=== PATIENT | male | born 1960 | race Caucasian/White ===

== ENCOUNTER 2020-12-29 12:44 | Emergency (ER) | payer SELFPAY ==
[~2020-12-29] VITALS: Ht 185.4 cm; Wt 66.1 kg
[~2020-12-29 12:44] MED LIST: AMOX1TAB64 PO; FLUC200T4 PO; IBUP-1902 PO; OMEP40CA42 PO; OXYC1TAB14 PO
[2020-12-29] MEDS ORDERED: KETOROLAC 30 MG/1 ML ONE (14:00)
[2020-12-29] MEDS ORDERED: KETOROLAC 30 MG/1 ML IM ONE (14:00)
[2020-12-29 14:07] VITALS: BP 114/85
== END 2020-12-29 15:12 | disposition home or self-care (01) ==
LOC: ED 13:19
DX: S39.012A Strain of muscle, fascia and tendon of lower back, initial encounter (principal); G89.11 Acute pain due to trauma; M25.512 Pain in left shoulder; M25.552 Pain in left hip; F17.200 Nicotine dependence, unspecified, uncomplicated; W01.0XXA Fall on same level from slipping, tripping and stumbling without subsequent striking against object, initial encounter; Y93.89 Activity, other specified; Y92.89 Other specified places as the place of occurrence of the external cause; Y99.8 Other external cause status
CPT/HCPCS: 72190; 96372; 99283; J1885

== ENCOUNTER 2021-01-25 15:23 | Emergency (ER) | payer SELFPAY ==
[~2021-01-25] VITALS: Ht 182.9 cm; Wt 65.0 kg
--- NOTE | 2021-01-25 16:00 | NUR ---
PT REPORTS N/V, DIZZINESS, WEAKNESS, SHAKINESS X 2 DAYS. "I HAVEN'T BEEN ABLE TO KEEP ANYTHING DOWN". DENIES HX OF SAME. Addendum: 01/25/21 at 1706 by HBENSON ALSO REPORTS DIARRHEA.
[2021-01-25] MEDS ORDERED: ONDANSETRON 2MG/ML, 2ML ONE (16:42)
[2021-01-25] MEDS ORDERED: FAMOTIDINE 20 MG/2 ML ONE (16:42)
[2021-01-25 16:47] LABS: BASOPHILS % (AUTO) 1 % (0-1); EOSINOPHILS % (AUTO) 0 % (1-7); LYMPHOCYTES % (AUTO) 8 % (22-44); MEAN CORPUSCULAR HGB CONC 34.3 g/dL (33.2-36.2); MEAN PLATELET VOLUME 9.4 fL (7.4-10.4); MONOCYTES % (AUTO) 11 % (2-9); NEUTROPHILS % (AUTO) 81 % (42-75); PLATELET COUNT 110 x10^3/uL (130-400); RED BLOOD COUNT 3.01 x10^6/uL (4.38-5.82); RED CELL DISTRIBUTION WIDTH 16.8 % (9.4-14.8)
[2021-01-25 16:55] LABS: ALANINE AMINOTRANSFERASE 46 U/L (12-78); ALBUMIN 3.4 g/dL (3.4-5.0); ANION GAP 9 mmol/L (5-15); CALCIUM 8.7 mg/dL (8.5-10.1); CHLORIDE 103 mmol/L (98-107); CREATININE 0.86 mg/dL (0.7-1.3)
[2021-01-25 16:58] LABS: ALKALINE PHOSPHATASE 40 U/L (45-117); BILIRUBIN,TOTAL 1.2 mg/dL (0.2-1.0); TOTAL PROTEIN 6.2 g/dL (6.4-8.2)
--- NOTE | 2021-01-25 17:00 | NUR ---
PT RETURNS FROM IMAGING. MEDICATED PER ORDERS.
[2021-01-25 17:06] LABS: MD MORPH REVIEW ONLY
[2021-01-25 17:07] LABS: <PLATELET ESTIMATE> DECREASED; LARGE PLATELETS 1+
[2021-01-25 17:08] LABS: ANISOCYTOSIS 1+
[2021-01-25 17:09] LABS: HYPOCHROMIA 1+
[2021-01-25] MEDS ORDERED: MAGNESIUM SULFATE/D5W 100 ML ONE (17:17)
[2021-01-25] MEDS ORDERED: SODIUM CHLORIDE FLUSH 10ML SYR IVF ONE (17:30)
[2021-01-25] MEDS ORDERED: SODIUM CHLORIDE 0.9% 1,000ML IVBOLUS ONE (17:30)
[2021-01-25] MEDS ORDERED: FAMOTIDINE 20 MG/2 ML IVPush ONE (17:30)
[2021-01-25] MEDS ORDERED: ONDANSETRON 2MG/ML, 2ML IVPush ONE (17:30)
--- NOTE | 2021-01-25 17:45 | NUR ---
PT REPORTS HE DRINKS DAILY AND BINGE DRINKS ON WEEKENDS. TOLERATING SOME WATER. ERP AWARE, WILL TRY PO POTASSIUM. MG INFUSING. Addendum: 01/25/21 at 1943 by LATONIA PER ERP, WILL HOLD IV POTASSIUM SINCE MG CURRENTLY INFUSING.
[2021-01-25 17:52] LABS: MICROSCOPIC INDICATED
[2021-01-25] MEDS ORDERED: MAGNESIUM SULFATE 1 GM in SODIUM CHLORIDE 0.9% 50 ML IV ONE (18:00)
[2021-01-25] MEDS ORDERED: POTASSIUM CHLORIDE 40 MEQ in SODIUM CHLORIDE 0.9% 1,000 ML IV ONE (18:00)
[2021-01-25] MEDS ORDERED: POTASSIUM CHLORIDE 10% 40 MEQ/30 ML UDC PO ONE (18:30)
[2021-01-25 19:34] VITALS: BP 127/76
--- NOTE | 2021-01-25 19:34 | NUR ---
PT AMBULATED TO BR WITHOUT DIFFICULTY, STATES HE FEELS READY TO BE DISCHARGED. DR. VALLE UPDATED.
--- NOTE | 2021-01-25 19:41 | NUR ---
D/C INSTRUCTIONS, MEDS & F/U APPT RV'WD WITH PT, HE VERBALIZES UNDERSTANDING. RX GIVEN X1. INSTRUCTED PT TO RETURN TO ED IF NOT IMPROVING OR FOR ANY CONCERNING SYMPTOMS. PT AMBULATED OUT OF ED WITHOUT DIFFICULTY, STATES A FRIEND WILL PICK HIM UP.
== END 2021-01-25 19:42 | disposition home or self-care (01) ==
LOC: ED 16:18
DX: R11.2 Nausea with vomiting, unspecified (principal); E86.0 Dehydration; R19.7 Diarrhea, unspecified; R42 Dizziness and giddiness; R10.9 Unspecified abdominal pain; I44.4 Left anterior fascicular block; R00.0 Tachycardia, unspecified; I49.3 Ventricular premature depolarization; I51.7 Cardiomegaly; R94.31 Abnormal electrocardiogram [ECG] [EKG]; F17.200 Nicotine dependence, unspecified, uncomplicated
CPT/HCPCS: 36415; 74021; 80053; 81001; 83690; 85025; 87086; 93005; 96365; 96375; 99285; J2405; J3475; J7030

== ENCOUNTER 2021-01-27 19:20 | Inpatient (IN) | payer OTHER ==
[~2021-01-27] VITALS: Ht 182.9 cm; Wt 69.8 kg
[2021-01-27] MEDS: DIAZEPAM 10 MG TABLET PO SCH ×2 (00:25→22:30)
[2021-01-27] MEDS ORDERED: ACETAMINOPHEN 500 MG TABLET ONE (19:37)
--- NOTE | 2021-01-27 19:57 | NUR ---
patient arrives via [facility] after [facility]. patient has no recollection of fall or why he fell but woke up on the ground after friend came over to his house and found him on his bedroom floor. patient states the last thing he remembers is talking to his brother, whom he lives with, around 5pm when his brother came home from work and he went into his bedroom and was watching TV on his bed. patient denies drinking alcohol tonight. VS remain stable. no significant past medical history. bloody drainage from R ear canal was noted on arrival. i irrigated this with warm tap water and 20cc syringe gently and patient had pain during this procedure. i cleansed his face where dried blood was noted as well and patient able to wash his hands with warm wet washcloth. patient moving all extremities. All clothing removed and no other injuries noted. 2x2 gauze pad placed subtly in outer ear canal to soak any continuous bleeding from this area. pupils bilaterally reactive and same size. 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 no injury to mouth other than yellow/white/peña residue film to tongue. moist mucous membranes. speech clear. patient c/o R sided ADAMS and 1G tylenol administered. swallow eval performed prior to PO medication administration with small sips of water, due to unknown cause of fall, and passed. will continue to monitor. call saab in reach. all rails up. safety maintained
[2021-01-27] MEDS ORDERED: ACETAMINOPHEN 500 MG TABLET PO ONE (20:00)
[2021-01-27 20:27] LABS: BASOPHILS % (AUTO) 1 % (0-1); EOSINOPHILS % (AUTO) 1 % (1-7); LYMPHOCYTES % (AUTO) 22 % (22-44); MEAN CORPUSCULAR HEMOGLOBIN 36.2 pg (27.5-34.5); MEAN CORPUSCULAR HGB CONC 34.2 g/dL (33.2-36.2); MEAN PLATELET VOLUME 9.3 fL (7.4-10.4); MONOCYTES % (AUTO) 11 % (2-9); NEUTROPHILS % (AUTO) 65 % (42-75); PLATELET COUNT 117 x10^3/uL (130-400); RED BLOOD COUNT 2.52 x10^6/uL (4.38-5.82); RED CELL DISTRIBUTION WIDTH 16.9 % (9.4-14.8)
[2021-01-27 20:34] LABS: ALANINE AMINOTRANSFERASE 50 U/L (12-78); ANION GAP 6 mmol/L (5-15); CALCIUM 8.2 mg/dL (8.5-10.1); CHLORIDE 102 mmol/L (98-107)
[2021-01-27 20:37] LABS: ALKALINE PHOSPHATASE 34 U/L (45-117); BILIRUBIN,TOTAL 0.4 mg/dL (0.2-1.0); CREATININE 0.74 mg/dL (0.7-1.3); MD MORPH REVIEW ONLY; TOTAL PROTEIN 5.5 g/dL (6.4-8.2)
--- NOTE | 2021-01-27 20:44 | NUR ---
patient remains resting in bed in NAD. VS remain stable on RA. call saab in reach. safety maintained. will continue to monitor.
[2021-01-27 20:59] LABS: <PLATELET ESTIMATE> DECREASED; POLYCHROMASIA 1+
[2021-01-27 21:01] LABS: HYPOCHROMIA 1+; OVALOCYTES 1+
[2021-01-27 21:02] LABS: <PLT MORPHOLOGY> NORMAL PLT MORPH
--- NOTE | 2021-01-27 21:09 | NUR ---
EKG completed by this RN with Dr. Aguirre at bedside. plan of care reviewed with patient by Dr. Aguirre and reviewed test results. call saab in reach. safety maintained. will continue to monitor.
--- NOTE | 2021-01-27 21:15 | NUR ---
new gauze replaced in R ear. prior gauze was saturated with blood.
--- NOTE | 2021-01-27 21:40 | NUR ---
patient resting in bed lying on L lateral side with eyes closed. call saab in reach. VS remain stable on RA. will continue to monitor
[2021-01-27] MEDS ORDERED: MELATONIN 5 MG TABLET PO PRN (22:00)
[2021-01-27] MEDS ORDERED: ONDANSETRON 2MG/ML, 2ML IVPush PRN (22:00)
[2021-01-27] MEDS ORDERED: HYDROcodone/APAP 5/325 TABLET PO PRN (22:00)
[2021-01-27] MEDS ORDERED: FOLIC ACID 1 MG TABLET PO ONE (22:30)
[2021-01-27] MEDS ORDERED: LORazepam 1MG TABLET PO PRN ×4 (22:30)
[2021-01-27] MEDS ORDERED: THIAMINE 200 MG in DEXTROSE 5% 50 ML IVPB ONE (22:30)
[2021-01-27] MEDS ORDERED: LORazepam 0.5MG TABLET PO PRN (22:30)
--- NOTE | 2021-01-27 22:40 | NUR ---
report given to Dinesh RAMIREZ
--- NOTE | 2021-01-27 22:41 | NUR ---
patient resting in bed in NAD. call saab in reach. safety maintained. will continue to monitor
[2021-01-28] VITALS (7 sets, daily range): BP systolic 91–118; BP diastolic 56–73
[2021-01-28] MEDS ORDERED: DIAZEPAM 5 MG TABLET ONE ×3 (00:08→12:06)
[2021-01-28] MEDS: DIAZEPAM 10 MG TABLET PO SCH ×3 (00:25→12:10)
[2021-01-28] MEDS: PANTOPRAZOLE 40 MG IV IVPush SCH ×2 (00:25→10:04)
[2021-01-28] MEDS: NICOTINE 21 MG/24 HR PATCH.TD24 TD SCH ×2 (00:29→19:58)
[2021-01-28 01:28] LABS: AMPHETAMINE SCREEN, URINE Negative (Negative); BARBITURATE SCREEN, URINE Negative (Negative); BENZODIAZEPINE SCREEN, URINE Negative (Negative); CANNABINOID SCREEN, URINE Positive (Negative); COCAINE SCREEN, URINE Negative (Negative); METHADONE SCREEN, URINE Negative (Negative); OPIATE SCREEN, URINE Negative (Negative)
[2021-01-28 05:35] LABS: BASOPHILS % (AUTO) 1 % (0-1); CHLORIDE 105 mmol/L (98-107); EOSINOPHILS % (AUTO) 2 % (1-7); LYMPHOCYTES % (AUTO) 35 % (22-44); MEAN CORPUSCULAR HEMOGLOBIN 36.5 pg (27.5-34.5); MEAN CORPUSCULAR HGB CONC 34.5 g/dL (33.2-36.2); MEAN PLATELET VOLUME 9.5 fL (7.4-10.4); MONOCYTES % (AUTO) 10 % (2-9); NEUTROPHILS % (AUTO) 53 % (42-75); PLATELET COUNT 117 x10^3/uL (130-400); RED BLOOD COUNT 2.38 x10^6/uL (4.38-5.82); RED CELL DISTRIBUTION WIDTH 17.4 % (9.4-14.8)
[2021-01-28 05:42] LABS: ALANINE AMINOTRANSFERASE 43 U/L (12-78); ALBUMIN 2.7 g/dL (3.4-5.0); ALKALINE PHOSPHATASE 30 U/L (45-117); ANION GAP 7 mmol/L (5-15); BILIRUBIN,TOTAL 0.5 mg/dL (0.2-1.0); CALCIUM 7.9 mg/dL (8.5-10.1); CREATININE 0.64 mg/dL (0.7-1.3); TOTAL PROTEIN 4.9 g/dL (6.4-8.2)
[2021-01-28 05:48] LABS: MD NO
[2021-01-28] MEDS: MULTIVITAMINS/MINERALS TABLET PO SCH (08:28)
[2021-01-28] MEDS ORDERED: MECL-101 PO (10:42)
[2021-01-28] MEDS: ACETAMINOPHEN 325 MG TABLET PO PRN (12:10)
[2021-01-28] MEDS: POTASSIUM CHLORIDE 20 MEQ TAB.ER.PRT PO SCH (15:29)
[2021-01-28] MEDS ORDERED: MECLIZINE 25 MG TABLET PO PRN (15:30)
[2021-01-28] MEDS ORDERED: MAGNESIUM SULFATE PMX 4GM/100M 100 ML IVPB ONE (15:30)
[2021-01-28] MEDS: PANTOPRAZOLE 40MG TABLET PO SCH (18:15)
[2021-01-28] MEDS ORDERED: DIAZEPAM 5 MG TABLET PO SCH (22:30)
[2021-01-29] VITALS (7 sets, daily range): BP systolic 90–102; BP diastolic 55–68
[2021-01-29] MEDS: ACETAMINOPHEN 325 MG TABLET PO PRN ×2 (01:43→20:40)
[2021-01-29] MEDS: PANTOPRAZOLE 40MG TABLET PO SCH ×2 (05:10→16:31)
[2021-01-29 05:37] LABS: CHLORIDE 107 mmol/L (98-107)
[2021-01-29 05:44] LABS: BASOPHILS % (AUTO) 1 % (0-1); EOSINOPHILS % (AUTO) 2 % (1-7); LYMPHOCYTES % (AUTO) 25 % (22-44); MEAN CORPUSCULAR HEMOGLOBIN 36.6 pg (27.5-34.5); MEAN CORPUSCULAR HGB CONC 34.3 g/dL (33.2-36.2); MEAN PLATELET VOLUME 8.8 fL (7.4-10.4); MONOCYTES % (AUTO) 13 % (2-9); NEUTROPHILS % (AUTO) 60 % (42-75); PLATELET COUNT 147 x10^3/uL (130-400); RED BLOOD COUNT 2.53 x10^6/uL (4.38-5.82); RED CELL DISTRIBUTION WIDTH 17.5 % (9.4-14.8)
[2021-01-29 05:49] LABS: ALANINE AMINOTRANSFERASE 40 U/L (12-78); ALBUMIN 2.5 g/dL (3.4-5.0); ALKALINE PHOSPHATASE 32 U/L (45-117); ANION GAP 7 mmol/L (5-15); BILIRUBIN,TOTAL 0.5 mg/dL (0.2-1.0); CALCIUM 7.6 mg/dL (8.5-10.1); CREATININE 0.59 mg/dL (0.7-1.3)
[2021-01-29 06:37] LABS: MD SCAN
[2021-01-29] MEDS: MULTIVITAMINS/MINERALS TABLET PO SCH (08:15)
[2021-01-29] MEDS: POTASSIUM CHLORIDE 20 MEQ TAB.ER.PRT PO SCH (08:15)
[2021-01-29] MEDS: THIAMINE 100 MG in DEXTROSE 5% 50 ML IVPB SCH (08:15)
[2021-01-29] MEDS: NICOTINE 21 MG/24 HR PATCH.TD24 TD SCH (20:19)
[2021-01-30 00:55] VITALS: BP 97/60
[2021-01-30] MEDS: PANTOPRAZOLE 40MG TABLET PO SCH ×2 (06:18→16:52)
[2021-01-30 07:15] VITALS: BP 104/69
[2021-01-30] MEDS: POTASSIUM CHLORIDE 20 MEQ TAB.ER.PRT PO SCH (09:09)
[2021-01-30] MEDS: MULTIVITAMINS/MINERALS TABLET PO SCH (09:09)
[2021-01-30] MEDS: THIAMINE 100 MG in DEXTROSE 5% 50 ML IVPB SCH (09:10)
[2021-01-30 12:16] VITALS: BP 103/66
[2021-01-30] MEDS ORDERED: FOLI1TAB32 PO (16:24)
[2021-01-30] MEDS ORDERED: MAGN400T26 PO (16:24)
[2021-01-30] MEDS ORDERED: MULT-449 PO (16:24)
[2021-01-30] MEDS ORDERED: THIA100T67 PO (16:24)
[2021-01-30] MEDS ORDERED: PANT40TA6 PO ×2 (16:24)
[2021-01-30] MEDS: ACETAMINOPHEN 325 MG TABLET PO PRN (16:52)
== END 2021-01-30 18:43 | disposition home or self-care (01) | DRG 86 ==
LOC: SUATTDRO 21:50 → ED 21:53 → EDIP 22:09 → INTOOBSV 22:09 → 4WST 22:44 → 4NE 23:18 → OBSVTOIN 01-28 15:10
PROVIDERS: ADMIT Internal Medicine; ATTEND Internal Medicine
DX: S02.0XXA Fracture of vault of skull, initial encounter for closed fracture (principal); I50.22 Chronic systolic (congestive) heart failure; K92.2 Gastrointestinal hemorrhage, unspecified; D53.9 Nutritional anemia, unspecified; S02.19XA Other fracture of base of skull, initial encounter for closed fracture; E83.42 Hypomagnesemia; E87.6 Hypokalemia; E88.09 Other disorders of plasma-protein metabolism, not elsewhere classified; F07.81 Postconcussional syndrome; F10.10 Alcohol abuse, uncomplicated; F17.210 Nicotine dependence, cigarettes, uncomplicated; M19.90 Unspecified osteoarthritis, unspecified site; R42 Dizziness and giddiness; W18.30XA Fall on same level, unspecified, initial encounter; Y92.009 Unspecified place in unspecified non-institutional (private) residence as the place of occurrence of the external cause; Z83.6 Family history of other diseases of the respiratory system; Z80.1 Family history of malignant neoplasm of trachea, bronchus and lung; Y93.89 Activity, other specified; Y99.8 Other external cause status
CPT/HCPCS: 36415; 70450; 72125; 80053; 80307; 80320; 83735; 84100; 85025; 93005; 93306; 93356; 96365; 99285; G0378; J3411; C9113; G0480; J3475

== ENCOUNTER 2021-08-25 15:24 | Emergency (ER) | payer MEDICAID ==
[~2021-08-25] VITALS: Ht 182.9 cm; Wt 72.6 kg
[~2021-08-25 15:24] MED LIST changes: +FOLI1TAB32 PO; +MAGN400T26 PO; +MECL-101 PO; +MULT-449 PO; -OMEP40CA42 PO; +OMEP40CA8 PO; +OXYC1TAB12 PO; -OXYC1TAB14 PO; +PANT40TA6 PO; +THIA100T67 PO
[2021-08-25 15:52] VITALS: BP 123/73
[2021-08-25 16:18] LABS: BASOPHILS % (AUTO) 1 % (0-1); EOSINOPHILS % (AUTO) 3 % (1-7); LYMPHOCYTES % (AUTO) 29 % (22-44); MEAN CORPUSCULAR HEMOGLOBIN 33.4 pg (27.5-34.5); MEAN PLATELET VOLUME 7.5 fL (7.4-10.4); MONOCYTES % (AUTO) 11 % (2-9); NEUTROPHILS % (AUTO) 57 % (42-75); PLATELET COUNT 254 x10^3/uL (130-400); RED BLOOD COUNT 3.72 x10^6/uL (4.38-5.82); RED CELL DISTRIBUTION WIDTH 14.6 % (9.4-14.8)
[2021-08-25 16:28] LABS: ALBUMIN 3.4 g/dL (3.4-5.0); ANION GAP 4 mmol/L (5-15); CALCIUM 8.2 mg/dL (8.5-10.1); CHLORIDE 108 mmol/L (98-107)
[2021-08-25 16:31] LABS: ALANINE AMINOTRANSFERASE 21 U/L (12-78); ALKALINE PHOSPHATASE 53 U/L (45-117); BILIRUBIN,TOTAL 0.4 mg/dL (0.2-1.0); CREATININE 0.86 mg/dL (0.7-1.3); TOTAL PROTEIN 6.7 g/dL (6.4-8.2)
--- NOTE | 2021-08-25 18:43 | NUR ---
PT TO ROOM FROM LOBBY
--- NOTE | 2021-08-25 19:06 | NUR ---
Nursing hand-off report received from ASHLEY Saldivar
--- NOTE | 2021-08-25 19:24 | NUR ---
Pt declined recheck of VS. d/c to home, ambulatory with steady gait. No s/sx distress. gcs =[id number]
== END 2021-08-25 19:40 | disposition home or self-care (01) ==
LOC: ED 19:35
DX: I80.02 Phlebitis and thrombophlebitis of superficial vessels of left lower extremity (principal); R42 Dizziness and giddiness; M19.90 Unspecified osteoarthritis, unspecified site; F17.210 Nicotine dependence, cigarettes, uncomplicated
CPT/HCPCS: 36415; 71045; 80053; 85025; 93005; 99285